=== PATIENT | female | born 1985 | race Caucasian/White ===

== ENCOUNTER 2017-07-06 16:35 | Emergency (ER) | payer SELFPAY, OTHER ==
[2017-07-06] MEDS: IBUPROFEN 800 MG TABLET. PO (17:53)
[2017-07-06] MEDS: HYDROcodone/APAP 5/325MG 1 TAB TABLET PO (17:53)
== END 2017-07-06 18:23 | disposition home or self-care (01) ==
LOC: ER 16:35
DX: S39.012A Strain of muscle, fascia and tendon of lower back, initial encounter (principal); Z88.8 Allergy status to other drugs, medicaments and biological substances; Z90.49 Acquired absence of other specified parts of digestive tract; X50.1XXA Overexertion from prolonged static or awkward postures, initial encounter; Y93.89 Activity, other specified; Y92.89 Other specified places as the place of occurrence of the external cause; Y99.8 Other external cause status
CPT/HCPCS: 72100; 99284

== ENCOUNTER 2018-10-13 09:08 | Emergency (ER) | payer OTHER ==
[~2018-10-13] VITALS: Ht 170.2 cm; Wt 98.4 kg
[~2018-10-13 09:08] MED LIST: CYCL5TAB PO; HYDR-3164 PO; IBUP-1060 PO; PREG100C PO; tramadol
[2018-10-13 09:48] VITALS: BP 119/70
--- NOTE | 2018-10-13 10:11 | RAD ---
Examination: 3 views left ankle HISTORY: History of left ankle. For 2 weeks after fall COMPARISON: None available. Findings The alignment of the ankle mortise grossly appears unremarkable. There is no acute fracture or dislocation identified. Impression: No acute osseous findings. Electronically signed by: Misha Gupta MD (10/13/2018 10:07 AM) [id number]
--- NOTE | 2018-10-13 10:25 | PHYS DOC ---
Past Medical History Past Medical History: No Pertinent History Additional Past Medical Histor: miscarriage x2 Past Surgical History: No Surgical History Alcohol Use: None Drug Use: None Adult General Chief Complaint Chief Complaint: ANKLE PROBLEM HPI HPI Patient is a 32 year old female who presents to the emergency room with complaints of left ankle, and left shoulder pain after she tripped and fell landing on her left side approximately 2 weeks ago. Patient reports that her lateral ankle is tender to touch. She reports full range of motion of her left shoulder however states that she has a sharp sensation inside of the shoulder from time to time. Patient also complains of a dry cough, and runny nose, for the last week. She currently rates her pain a 6 out of 10 on the pain scale, she has been taking Motrin and Tylenol at home with no relief of the pain. ROS Patient denies any fever, shortness of breath, sinus pressure, headache, ear pain, sore throat, abdominal pain, nausea, vomiting, or diarrhea. Patient denies any decreased range of motion of her left shoulder, reports increased pain with range of motion of left ankle. She denies any numbness, tingling, or weakness of her extremities.All other ROS is neg unless otherwise noted in HPI. Review of Systems Review of Systems See Above Allergies Allergies Allergies Coded Allergies Type Severity Reaction Last Updated Verified ondansetron Allergy Intermediate Hives 09/28/14 No Physical Exam Physical Exam See Above Constitutional: Well developed, well nourished, no acute distress, non-toxic a ppearance. [] HENT: Normocephalic, atraumatic, bilateral external ears normal, bilateral TMs normal, posterior pharynx with mild erythema, oropharynx moist, no oral exudates, nasal turbinates are edematous and erythematous, clear nasal drainage. Eyes: PERRLA, EOMI, conjunctiva normal, no discharge. [] Neck: Normal range of motion, no tenderness, supple, no stridor. [] Cardiovascular:Heart rate regular rhythm, no murmur [] Lungs & Thorax: Bilateral breath sounds clear to auscultation [] Skin: Warm, dry, no erythema, no rash. [] Extremities: L shoulder: no tenderness, no cyanosis, ROM intact, no edema: L ankle: Lateral tenderness to palpation, no cyanosis, ROM intact, no edema, no bruising [] Neurologic: Alert and oriented X 3, normal motor function, normal sensory function, no focal deficits noted. [] Psychologic: Affect normal, judgement normal, mood normal. [] Current Patient Data Vital Signs Vital Signs Date Time Temp Pulse Resp B/P (MAP) Pulse Ox O2 Delivery O2 Flow Rate FiO2 10/13/18 09:48 98.5 90 16 119/70 (86) 99 Room Air 98.5 EKG EKG [] Radiology/Procedures Radiology/Procedures PROCEDURE: ANKLE LEFT 3V Examination: 3 views left ankle HISTORY: History of left ankle. For 2 weeks after fall COMPARISON: None available. Findings The alignment of the ankle mortise grossly appears unremarkable. There is no acute fracture or dislocation identified. Impression: No acute osseous findings.[] Course & Med Decision Making Course & Med Decision Making Pertinent Labs and Imaging studies reviewed. (See chart for details) [] Dragon Disclaimer Dragon Disclaimer This electronic medical record was generated, in whole or in part, using a voice recognition dictation system. Departure Departure Impression: Primary Impression: Allergic rhinitis Additional Impressions: Left ankle pain Left shoulder pain Disposition: 01 HOME, SELF-CARE Condition: STABLE Referrals: LOUIE POLLARD MD (PCP) LAUREN DEWITT II, MD Patient Instructions: Allergic Rhinitis, Ankle Pain Additional Instructions: Take tylenol or naproxen as needed for pain. Wear the papi wrap provided as needed. Follow up with Dr. Dewitt if ankle pain and shoulder pain persist. Recommend taking a daily antihistamine such as Bernadette, Claritin, or Zyrtec. Avoid triggers such as smoke, fragrance, dust, and pollen. May take OTC cough suppressants as needed. Follow-up with your primary care doctor if symptoms persist, return to the ER if symptoms worsen. Problem Qualifiers Primary Impression: Allergic rhinitis Allergic rhinitis trigger: unspecified Allergic rhinitis seasonality: unspecified Qualified Codes: J30.9 - Allergic rhinitis, unspecified Additional Impressions: Left ankle pain Chronicity: acute Qualified Codes: M25.572 - Pain in left ankle and joints of left foot Left shoulder pain Chronicity: acute Qualified Codes: M25.512 - Pain in left shoulder BEKAH SHINE APRN Oct 13, 2018 10:25
== END 2018-10-13 10:32 | disposition home or self-care (01) ==
LOC: ER 09:08
DX: M25.572 Pain in left ankle and joints of left foot (principal); J30.9 Allergic rhinitis, unspecified; M25.512 Pain in left shoulder; Z88.8 Allergy status to other drugs, medicaments and biological substances; W01.0XXA Fall on same level from slipping, tripping and stumbling without subsequent striking against object, initial encounter; Y93.89 Activity, other specified; Y92.89 Other specified places as the place of occurrence of the external cause; Y99.8 Other external cause status
CPT/HCPCS: 73610; 99284